=== PATIENT | male | born 1940 | race Caucasian/White ===

== ENCOUNTER → 2022-10-08 | Outpatient (CLI) | payer MEDICARE ==
[2022-10-08 12:32] LABS: INR 1.1 (<1.2); Partial Thromboplastin Time 27.7 sec (22.0-30.0); Prothrombin Time 11.3 sec (9.0-12.0)
[2022-10-08 19:30] LABS: HCT 38.3 % (39.6-50.0); HGB 12.5 g/dL (13.0-17.0); MCH 31.7 pg (27.0-32.0); MCHC 32.6 g/dL (32.0-37.0); MCV 97.2 fL (80.0-97.0); Mean Platelet Volume 10.1 fL (9.5-12.2); NRBC Per 100 WBC 0 /100 WBCS (0.0-0.0); Platelet Count 199 X 10*3/uL (140-440); RBC 3.94 X 10*6/uL (4.40-5.60); RDW 13.2 % (11.5-14.5)
[2022-10-08 21:04] LABS: Appearance,Urine Clear (Clear); Bilirubin,Urine Negative (Negative); Blood,Urine Negative (Negative); Color,Urine Yellow (Yellow); Ketones,Urine Negative (Negative); Nitrite,Urine Negative (Negative); Specific Gravity,Urine 1.009 (1.001-1.030); Urobilinogen,Urine 0.2 (0.2,1.0)
[2022-10-09 01:58] LABS: African American GFR (CKD) 27.3 (60.0-200.0); Albumin 4.1 g/dL (3.8-4.9); Albumin/Globulin Ratio 1.41 (1.60-3.17); Anion Gap 12.9 mmol/L (10.00-18.00); BUN/Creat Ratio 26.68 Ratio (12.00-20.00); Blood Urea Nitrogen 66.7 mg/dL (9.0-27.0); Calcium 9.5 mg/dL (8.7-10.3); Carbon Dioxide 25.1 mmol/L (20.0-27.5); Globulin 2.9 g/dL (1.6-3.3); Non-African American GFR(CKD) 23.5 (60.0-200.0); Potassium 4.7 mmol/L (3.5-5.5); Total Bilirubin 1.1 mg/dL (0.30-1.20)
== END | disposition home or self-care (01) ==
LOC: LABPAT 11:18
PROVIDERS: ATTEND Orthopaedic Surgery
DX: Z01.818 Encounter for other preprocedural examination (principal); M17.12 Unilateral primary osteoarthritis, left knee; I45.2 Bifascicular block; I49.3 Ventricular premature depolarization; R94.31 Abnormal electrocardiogram [ECG] [EKG]
CPT/HCPCS: 80053; 81003; 85027; 85610; 85730; 87070; 93005

== ENCOUNTER 2022-11-02 07:16 | Inpatient (IN) | payer MEDICARE ==
[~2022-11-02 07:16] MED LIST: ACETAMINOPHEN TAB 500 MG TAB PO PRN; GABAPENTIN 300 MG CAP PO PRN; MELOXICAM 7.5 MG TAB PO PRN; TRANEXAMIC ACID IN NACL,ISO-OS 1,000 MG in SALINE 1 100ML.BAG IVPB PRN
[2022-11-02] MEDS ORDERED: ONDANSETRON 4 MG/2 ML VIAL IVP ONE (07:34)
[2022-11-02] MEDS ORDERED: LIDOCAINE 1% (10MG/ML) FOR IV START INTRADERMA PRN (07:34)
[2022-11-02] MEDS ORDERED: DEXAMETHASONE SOD PHOSPHATE 4 MG/ML 1 ML VIAL IVP ONE (08:15)
[2022-11-02] MEDS: LACTATED RINGERS 1,000 ML IV SCH (08:15)
[2022-11-02 08:21] LABS: Glucose,Whole Blood 104 mg/dL (70-110)
[2022-11-02] MEDS ORDERED: MIDAZOLAM 2 MG/2 ML VIAL IVP ONE (08:21)
[2022-11-02] MEDS ORDERED: fentaNYL (PF) 50 MCG/1 ML VIAL IVP ONE (08:21)
[2022-11-02] MEDS ORDERED: bisacodyL 10 MG SUPP RECTAL PRN (08:47)
[2022-11-02] MEDS ORDERED: NA PHOS,M-B/NA PHOS,DI-BA 133 ML ENEMA RECTAL PRN (08:47)
[2022-11-02] MEDS ORDERED: HYDROmorphone 0.5 MG/0.5 ML SYRINGE IVP PRN ×2 (08:47)
[2022-11-02] MEDS ORDERED: MAGNESIUM HYDROXIDE 2,400 MG/10 ML CUP PO PRN (08:47)
[2022-11-02] MEDS ORDERED: NALOXONE 0.4 MG/ML 1 ML VIAL IV PRN (08:47)
[2022-11-02] MEDS ORDERED: PROPOFOL 10 MG/ML 20 ML VIAL IV ONE (09:01)
[2022-11-02] MEDS ORDERED: SUCCINYLCHOLINE CHLORIDE 200 MG/10 ML VIAL IV ONE (09:01)
[2022-11-02] MEDS ORDERED: TRANEXAMIC ACID IN NACL,ISO-OS 1,000 MG/100 ML BAG ONE (09:01)
[2022-11-02] MEDS ORDERED: fentaNYL (PF) 50 MCG/ML 2 ML AMP ONE (09:01)
[2022-11-02] MEDS ORDERED: MIDAZOLAM 2 MG/2 ML VIAL ONE (09:01)
[2022-11-02] MEDS ORDERED: SODIUM CHLORIDE 0.9% (PF) 10 ML VIAL ONE (09:01)
[2022-11-02] MEDS ORDERED: LIDOCAINE 2% INJ 20 MG/ML (2 ML VIAL) ONE (09:01)
[2022-11-02] MEDS ORDERED: ROPIVACAINE 5 MG/ML 30 ML VIAL ONE (09:01)
[2022-11-02] MEDS ORDERED: ceFAZolin 1,000 MG in SODIUM CHLORIDE 0.9% 1,000 ML IRRIGATION ONE (09:04)
--- NOTE | 2022-11-02 09:31 | P.ANPRN ---
Procedure Note - Anesthesia - Nerve Block Performed Left Adductor Canal Infusion Time Out Performed: Yes (0821) Date of Procedure: 11/02/22 Procedure Start Time: Procedure Stop Time: Location of Patient: PreOp Indication: Acute Post-Operative Pain, Requested by Surgeon Specifically requested for management of pain by DrDerek: Gabriel Rees Sedation Type: Sedate with meaningful contact maintained Preparation: Sterile Prep, Sterile Dressing Position: Supine Catheter Depth at Skin (cm): 6 Catheter: Indwelling Needle Types: Pajunk Needle Gauge: 18 Ultrasound used to visualize needle placement: Yes Ultrasound used to observe medication spread: Yes Injectate: 0.5% Ropivacaine (see comment for volume) (15cc +5cc nacl pf) Blood Aspirated: No Pain Paresthesia on Injection Noted: No Resistance on Injection: Normal Image Stored and Saved: Yes Events: Uneventful and Well Tolerated
--- NOTE | 2022-11-02 09:32 | P.ANPRN ---
Procedure Note - Anesthesia - Nerve Block Performed Left iPack Single Time Out Performed: Yes (0821) Date of Procedure: 11/02/22 Procedure Start Time: Procedure Stop Time: Location of Patient: PreOp Indication: Acute Post-Operative Pain, Requested by Surgeon Specifically requested for management of pain by DrDerek: Gabriel Rees Sedation Type: Sedate with meaningful contact maintained Preparation: Sterile Prep Position: Supine Catheter: None Needle Types: Pajunk Needle Gauge: 21 Ultrasound used to visualize needle placement: Yes Ultrasound used to observe medication spread: Yes Injectate: 0.5% Ropivacaine (see comment for volume) (15cc +5cc nacl pf) Blood Aspirated: No Pain Paresthesia on Injection Noted: No Resistance on Injection: Normal Image Stored and Saved: Yes Events: Uneventful and Well Tolerated
--- NOTE | 2022-11-02 10:08 | P.OP ---
Date of Procedure: 11/02/22 Preoperative Diagnosis: Severe osteoarthritis left knee Postoperative Diagnosis: Severe osteoarthritis left knee Procedure(s) Performed: Left total knee arthroplasty Implants: Dueñas [employer] Nephew Journey II CR Oxinium cruciate retaining femoral component size 6, left Dueñas [employer] Nephew Journey nonporous tibial baseplate size 5, left Dueñas [employer] Nephew Journey II, XLPE Deep Dished articular insert, size 15 mm, Size 5-6, left Duñeas [employer] Nephew Journey Romina II resurfacing patellar component, oval, 35 mm All components were cemented using Palacos R bone cement The articulation is Oxinium on polyethylene Anesthesia: BRIAN Surgeon: Gabriel Rees Dining Services Manager #1: Maty Abarca Estimated Blood Loss (ml): 30 Pathology: none sent Condition: stable Disposition: PACU Indications for Procedure: The patient's knee is end-stage, and conservative management has failed. The operation of knee replacement has been discussed at length in the office, as well as potential risks and complications. These are inclusive of, but not limited to: Infection, bleeding, scarring, discomfort, stiffness, blood vessel and nerve damage, need for further surgery, failure to relieve symptoms, persistence, recurrence, or worsening of problems, loosening, dislocation, wear, blood clot, pulmonary embolism, , gait dysfunction, stiffness, and other risks as discussed in the office. Patient elects to proceed and the consent form has been signed. Operative Findings: The operative findings are consistent with severe osteoarthritis of the left knee Description of Procedure: The patient was seen in the preoperative area, the consent was reviewed and the operative site was marked with a skin marker. The patient verified the procedure and the operative site. An adductor canal pain catheter and an iPACK block were placed by anesthesia in the preoperative area. The patient was then brought to the operating room and positioned on the operating room table in the supine position. Preoperative antibiotics and a gram of tranexamic acid were given intravenously. A general anesthetic was administered by the anesthesia department. Care was taken to make sure that all pressure points were adequately padded. A tourniquet was placed on the upper thigh and the lower extremity was prepped with ChloraPrep and draped in usual sterile fashion. A universal time-out was then performed which confirmed the patient's name, surgical site, ALLERGIES, and consent. The lower extremity was then exsanguinated and tourniquet was inflated to 250 mmHg. A standard anterior midline approach to the knee was performed. The skin and subcutaneous tissue were sharply dissected down to the patellar tendon. A medial parapatellar arthrotomy was then performed. The knee was then extended, the patellar was everted, and the knee was flexed. The infra-patellar fat pad was removed in order to enhance exposure. The anterior horns of both menisci were excised, and a release was performed to the posterior medial aspect of the knee. On gross visual inspection, there was complete loss of articular cartilage in the medial and patellofemoral joint spaces. There was also significant cartilage damage in the lateral compartment. There were multiple periarticular osteophytes globally about the knee which were then removed with a Ronguer. The femoral canal was then opened with the 9.5 mm intramedullary drill. The 8 mm intramedullary ashley was then inserted into the femoral canal with the distal femoral cutting guide set for 5 of valgus. The distal femoral cutting block was then pinned in place. The intramedullary ashley was then removed, and the distal femur was then cut. The cutting block was then removed and the cut was checked for symmetry. The resected bone was then measured to confirm the appropriate distal femoral resection. Next, the sizing guide was then placed and set for 3 external rotation based off of the epicondylar axis and Marietta's line. Pins were then placed and the drill holes, and the femur was sized with the sizing stylus. The pins were then removed, and the sizing guide was then removed. The spikes of the appropriate size femoral block was then placed into the predrilled holes, and malleted into place. Two 45 mm pins were then placed into the fixation holes on the cutting block. An brook wing was then used to ensure there would be no notching with the anterior cut. The anterior condyles were cut without notching. The anterior chord cut was then performed, followed by the posterior cut, posterior chamfer cut, and the anterior chamfer cut. The collateral ligaments were protected during the entire process. The cutting block was then removed. Any remaining bone and osteophytes were removed from the femur with a Ronguer. Attention was then directed to the tibia. The remaining ACL was removed with a Ronguer, and the tibia was then gently subluxed forward with a large bent knee retractor. Any remaining menisci were excised. The posterior lateral corner was cauterized in order to coagulate the lateral geniculate artery. The extra medullary tibial cutting guide was then placed, set for the appropriate rotation, slope, and depth of resection. The proximal tibia cutting guide was then pinned in place. Proximal tibia was then cut and sized. A curved osteotome was then used to remove any posterior osteophytes from the distal femur. The femoral trial was placed. A narrow saw blade was then used to remove the anterior intracondylar femoral bone. The CR notch trial was then placed. The tibial trial was placed with the appropriate-sized insert. The knee was able to fully extend and flex to 130 and was stable throughout all range of motion. The knee was then extended and the patella was everted. Patella was then measured, and then using an osteotomy guide, the patella was cut at the appropriate level. The patellar component was sized. The patellar drill guide was placed and the patella was drilled. The patella trial was then placed. The knee was then taken through range of motion with the patella trial and the patella tracked normally using the no thumbs technique. The patella trial was then removed. The knee was then flexed and lug holes were drilled through the femoral trial and the femoral trial was then removed. The tibial was then re- exposed, and the tibial broach guide was then pinned in place after it was set for the appropriate rotation to allow for the most coverage without overhang. The tibia was then reamed and broached. The femoral canal was plugged with autologous bone. The cut surfaces of bone were then irrigated with pulsatile lavage. The knee was also irrigated with Irrisept solution. The components were then opened, the cement was mixed. Cement was placed on the backside of the femoral, tibial, and patellar components. Cement was then applied to the tibial surface and pressurized into the surface using finger pressurization technique. The tibial component was then applied and excess cement was removed after it was impacted securely noted to be flush with the cut surface. In similar fashion, the cement was applied to the cut femoral surface, pressuri zed and using finger pressurization the component was impacted in place. Excess cement was removed. The polyethylene spacer was then implanted and locked into position. Patellar component was then applied in a similar technique and the patellar clamp was used to hold patella in place while the cement hardened. The knee was held in full extension while the cement hardened. Once the cement had fully hardened, the knee was reinspected. Any other cement extrusion was removed the final range of motion testing showed range of motion from 0-130 with excellent stability, both medial and laterally and appropriate alignment of the leg. Patella tracked normally. After the cemented hardened, the tourniquet was released and hemostasis was obtained. A second gram of transexamic acid was given intravenously. The knee was again irrigated. The knee was again taken through range of motion and found to be stable throughout all range of motion of 0-130, and the patella tracked normally. The fascia was then closed with 0 Vicryl followed by #2 strata fix suture. The subcutaneous tissue was closed with 3-0 Vicryl and 3-0 strata fix. Exofin glue was used for the skin and placed with the knee in flexion. After the glue had dried, and Optafoam silver impregnated dressing was applied. A lightly compressive dressing was applied using web roll and Jose wrap. Patient was then transferred to the stretcher and taken to recovery room in stable condition. Sponge and needle counts were correct. The purchasing assistant ROSS Rivera was required due the complexity surgery and the need for a skilled surgical orderly. She assisted in positioning, draping, retraction, and closure of the wound.
[2022-11-02] MEDS: HYDROmorphone 0.5 MG/0.5 ML SYRINGE IVP PRN ×4 (10:49→19:48)
--- NOTE | 2022-11-02 11:06 | XR ---
EXAMINATION TYPE: XR knee limited LT DATE OF EXAM: 11/02/2022 COMPARISON: NONE HISTORY: 82-year-old male evaluation for postoperative abnormality and alignment TECHNIQUE: 2 views FINDINGS: Images show placement of left total knee arthroplasty. Both distal femoral and proximal tib ial components of the prosthesis are well seated without periprosthetic fracture. Alignment grossly a natomic. Anterior soft tissue swelling with soft tissue air as well as intra-articular air related to recent operation. Small surgical clips are present along the medial aspect of the upper leg. IMPRESSION: Uncomplicated postoperative appearance left total knee arthroplasty.
[2022-11-02] MEDS: ONDANSETRON 4 MG/2 ML VIAL IVP PRN ×2 (13:14→19:47)
[2022-11-02] MEDS ORDERED: droPERidol 5 MG/2 ML VIAL IVP ONE (14:26)
[2022-11-02 14:34] LABS: Glucose,Whole Blood 203 mg/dL (70-110)
[2022-11-02 15:05] LABS: Glucose,Whole Blood 209 mg/dL (70-110)
[2022-11-02] MEDS ORDERED: DEXTROSE 50% SYRINGE 50 ML IVP PRN ×2 (15:21)
[2022-11-02 16:45] LABS: Glucose,Whole Blood 203 mg/dL (70-110)
--- NOTE | 2022-11-02 16:55 | P.CONS ---
History of Present Illness - Reason for Consult Consult date: 11/02/22 - History of Present Illness 82-year-old male with PMH of CHF, moderate to severe mitral regurg status post mitral clipping, CAD post CABG, history of TAVR, paroxysmal atrial fibrillation, ischemic cardiomyopathy status post pacemaker/defibrillator, diabetes mellitus on insulin presents to [facility] for elective surgery. He underwent left total knee arthroplasty with Dr. Rees. [facility] has been consulted for medical management of this patient. Patient currently reports 10/10 pain in his left knee. He has not urinated since his surgery. No bowel movement, not passing gas. Complains of some nausea and vomiting. Pertinent positives and negatives as discussed in HPI, a complete review of systems was performed and all other systems are negative. General: non toxic, no distress, appears at stated age Derm: warm, dry, midsternal surgical scar, scar from pacemaker and defibrillator Head: atraumatic, normocephalic, symmetric Eyes: EOMI, no lid lag, anicteric sclera Mouth: no lip lesion, mucus membranes moist Cardiovascular: S1S2 reg, no murmur Lungs: CTA bilateral, no rhonchi, no rales , no accessory muscle use Ext: no gross muscle atrophy, no edema, no contractures Neuro: no focal neuro deficits Psych: Alert, oriented, appropriate affect Assessment and Plan CHF, unknown EF CAD post CABG History of TAVR Paroxysmal atrial fibrillation Diabetes mellitus on insulin Based on my assessment of this patient, this patient meets a moderate complexity level of care. Patient has a chronic diagnosis of CHF, moderate to severe mitral regurg status post mitral clipping, CAD post CABG, history of TAVR, paroxysmal atrial fibrillation, ischemic cardiomyopathy, diabetes mellitus on insulin. CHF unknown EF: Careful monitoring of fluid status. Restart metoprolol 100 mg by mouth at bedtime. Restart Entresto 49-51 mg by mouth twice a day. Restart torsemide 20 mg by mouth daily. Restart Imdur 30 mg by mouth daily. CAD post CABG: Patient is on Alirocumab for dyslipidemia. Metoprolol as above. Restart Eliquis 5 mg by mouth twice daily. Paroxysmal atrial fibrillation: Metoprolol and Eliquis as above. Diabetes mellitus: Low-dose insulin sliding scale. Accu-Cheks before meals at bedtime. Hypoglycemic precautions. Restart long-acting insulin if blood glucose permits starting tomorrow. I have reviewed the following network security consultant notes: I have reviewed the results of the following tests: POC glucose 104-209. I have ordered the following tests: CBC and BMP ordered for tomorrow morning. I have discussed the care of this patient with the following independent historian: I have independently interpreted the following test below: I have discussed the management of this patient with the following physician: This patient has a moderate risk of morbidity due to the following reasons: Management of his chronic diagnosis of CHF, moderate to severe mitral regurg status post mitral clipping, CAD post CABG, history of TAVR, paroxysmal atrial fibrillation, ischemic cardiomyopathy, diabetes mellitus on insulin. Past Medical History Past Medical History: Atrial Fibrillation, Coronary Artery Disease (CAD), Chest Pain / Angina, CVA/TIA, Diabetes Mellitus, Hyperlipidemia, Hypertension, Myocardial Infarction (OR), Osteoarthritis (OA), Renal Disease Additional Past Medical History / Comment(s): pt states during hospital stay he was told he'd had a OR in the past, left shoulder and knee arthritis. states Stage 4 kidney disease. Last Myocardial Infarction Date:: unk History of Any Multi-Drug Resistant Organisms: None Reported Past Surgical History: Coronary Bypass/CABG, Heart Catheterization With Stent, Pacemaker, Tonsillectomy Past Anesthesia/Blood Transfusion Reactions: No Reported Reaction Date of Last Stent Placement:: 3-4 yrs ago Type of Cardiac Device: AICD Device Placement Date:: uzair hinojosa, Smoking Status: Former smoker - Past Family History Father Family Medical History: No Reported History Additional Family Medical History / Comment(s): early Mother Family Medical History: No Reported History Medications and Allergies Home Medications Medication Instructions Recorded Confirmed Type Acetaminophen [Tylenol Extra 1 tab PO DIRECTED PRN 10/28/22 10/28/22 History Strength] Alirocumab [Praluent Pen] 75 mg SQ Q14D 10/28/22 10/28/22 History Apixaban [Eliquis] 5 mg PO BID 10/28/22 10/28/22 History Cetirizine HCl [Zyrtec] 10 mg PO DAILY 10/28/22 10/28/22 History Cholecalciferol [Vitamin D3 (25 25 mcg PO DAILY 10/28/22 10/28/22 History Mcg = 1000 Iu)] Insulin Glargine,Hum.rec.anlog 30 unit SQ HS 10/28/22 10/28/22 History [Lantus Solostar Pen] Isosorbide Mononitrate ER [Imdur] 30 mg PO DAILY 10/28/22 10/28/22 History Liraglutide [Victoza 2-Elroy] 1.2 mg SQ DAILY 10/28/22 10/28/22 History Metoprolol Succinate [Toprol XL] 100 mg PO HS 10/28/22 10/28/22 History Sacubitril/Valsartan [Entresto 49 1 each PO BID 10/28/22 10/28/22 History mg-51 mg Tablet] Torsemide [Demadex] 20 mg PO DAILY 10/28/22 10/28/22 History Unk Fish Oil 1 tab PO DAILY 10/28/22 10/28/22 History Unk Magnesium 1 tab PO DAILY 10/28/22 10/28/22 History Unk Nitro Tab 1 tab PO DIRECTED PRN 10/28/22 10/28/22 History HYDROcodone/APAP 7.5-325MG [[place] 1 - 2 tab PO Q6H PRN #32 tab 11/02/22 Rx 7.5-325] Sennosides [Senokot] 2 tab PO DAILY PRN #60 tablet 11/02/22 Rx Allergies Allergy/AdvReac Type Severity Reaction Status Date / Time lisinopril Allergy Unknown Verified 11/02/22 08:13 ticagrelor [From Brilinta] Allergy Dyspnea Verified 11/02/22 08:13 Physical Exam Vitals: Vital Signs Temp Pulse Pulse Resp BP Pulse Ox 11/02/22 14:30 69 12 155/70 95 11/02/22 13:45 69 12 133/63 96 11/02/22 13:15 69 12 154/69 95 11/02/22 12:45 69 12 153/70 96 11/02/22 12:15 69 18 137/64 95 11/02/22 11:45 69 18 119/60 91 L 11/02/22 11:30 69 16 117/58 92 L 11/02/22 11:18 69 16 124/58 91 L 11/02/22 11:03 69 16 129/65 97 11/02/22 10:48 69 16 134/60 99 11/02/22 10:33 97.4 F L 70 16 155/70 99 11/02/22 08:43 67 16 153/61 96 11/02/22 08:10 97.2 F L 52 L 16 140/61 97 Intake and Output 11/02/22 11/02/22 11/02/22 06:59 14:59 22:59 Intake Total 1701 Output Total 30 Balance 1671 Intake: IV 1701 Output: Estimated Blood Loss 30 Results Labs: Abnormal Lab Results - Last 24 Hours (Table) 11/02/22 11/02/22 Range/Units 14:33 15:02 POC Glucose (mg/dL) 203 H 209 H (70-110) mg/dL
[2022-11-02] MEDS: INSULIN ASPART (NovoLOG) 100 UNIT/ML VIAL SQ SCH ×2 (17:24→21:38)
[2022-11-02] MEDS: HYDROcodone/APAP 7.5-325MG 1 EACH TAB PO PRN (17:24)
[2022-11-02] MEDS: SODIUM CHLORIDE 0.9% 1,000 ML IV SCH (17:25)
[2022-11-02] MEDS: METOPROLOL SUCCINATE (ER) 100 MG TAB.ER.24H PO SCH (19:49)
[2022-11-02] MEDS: SENNOSIDES-DOCUSATE SODIUM 1 EACH TAB PO SCH (19:50)
[2022-11-02] MEDS: SACUBITRIL/VALSARTAN 49 MG-51 MG TABLET PO SCH (19:50)
[2022-11-02 20:37] LABS: Glucose,Whole Blood 194 mg/dL (70-110)
[2022-11-03] MEDS: SODIUM CHLORIDE 0.9% 1,000 ML IV SCH ×2 (00:32→12:51)
[2022-11-03] MEDS: HYDROcodone/APAP 7.5-325MG 1 EACH TAB PO PRN ×4 (00:38→22:55)
[2022-11-03 05:12] LABS: African American GFR (CKD) 27 (>60 ml/min/1.73 sqM); Anion Gap 10 mmol/L; Blood Urea Nitrogen 69 mg/dL (9-20); Carbon Dioxide 23 mmol/L (22-30); Chloride 107 mmol/L (98-107); Glucose 139 mg/dL (74-99); Non-African American GFR(CKD) 23 (>60 ml/min/1.73 sqM); Potassium 5.7 mmol/L (3.5-5.1); Sodium 140 mmol/L (137-145)
[2022-11-03 05:49] LABS: Glucose,Whole Blood 110 mg/dL (70-110)
[2022-11-03] MEDS: INSULIN ASPART (NovoLOG) 100 UNIT/ML VIAL SQ SCH ×4 (05:59→21:37)
[2022-11-03] MEDS: LACTATED RINGERS 1,000 ML IV SCH (06:30)
[2022-11-03] MEDS: LORATADINE 10 MG TAB PO SCH (07:45)
[2022-11-03] MEDS: APIXABAN 5 MG TAB PO SCH ×2 (07:45→20:30)
[2022-11-03] MEDS: TORSEMIDE 20 MG TAB PO SCH (07:45)
--- NOTE | 2022-11-03 07:48 | P.PN ---
Progress Note - Text Progress Note Date: 11/03/22 (4179) Anesthesiology Postop day 1 status post total knee arthroplasty with adductor canal catheter. Patient doing well. VAS 0 out of 10. Gross strength intact in lower extremity. Afebrile. Denies alterations in sensorium. Catheter site intact. Heart regular rate Lungs nonlabored Abdomen nondistended Assessment: Postop day 1 status post total knee arthroplasty with adductor canal catheter Plan: 1.All questions answered. Maintain catheter 2 more days with patient removal at home. Instructions to be given at discharge. 2.This note was dictated using [id number] software. Please be advised there is a potential for misspellings or errors in sales attendant.
[2022-11-03] MEDS: SACUBITRIL/VALSARTAN 49 MG-51 MG TABLET PO SCH ×2 (07:51→20:31)
[2022-11-03] MEDS: ISOSORBIDE MONONITRATE ER 30 MG TAB.ER.24H PO SCH (07:55)
--- NOTE | 2022-11-03 08:51 | P.DS ---
Providers Expected date of discharge: 11/03/22 Attending physician: Gabriel Rees Consults: 11/02/22 08:47 Consult Physician Routine Consulting Provider: Erwin Lee Consult Reason/Comments: medical management Do you want consulting provider notified?: Yes Primary care physician: Gabriel Mendez - Discharge Diagnosis(es) (1) Osteoarthritis of left knee Current Visit: Yes Status: Acute (2) Status post total left knee replacement Current Visit: Yes Status: Acute Hospital Course: This is a 82-year-old male with known history of degenerative arthritis of the left knee. The patient presented for evaluation as an outpatient. After discussion and consideration patient elects to proceed with total knee arthroplasty. The patient is seen preoperatively by Dr. Rees and medically cleared for surgery by their primary care physician. Patient is admitted to [facility] on 11/02/2022 for total knee arthroplasty. The procedure is performed without complication or sequelae. The patient is doing well postoperatively. Labs and vital signs are stable on day of discharge. On day of discharge patient's knee incision is healing well. There is minimal erythema. There is no drainage noted at this time. There is minimal soft tiss ue swelling to the knee. Patient has full foot and ankle motion without difficulty or pain. Calf is soft and nontender to palpation. Neurovascular status to the left lower extremity is intact. Patient is discharged home in good condition. Please see med rec for accurate list of home medications. Plan - Discharge Summary Discharge Rx Participant: No New Discharge Prescriptions: New Sennosides [Senokot] 2 tab PO DAILY PRN #60 tablet PRN Reason: Constipation HYDROcodone/APAP 7.5-325MG [[place] 7.5-325] 1 - 2 tab PO Q6H PRN #32 tab PRN Reason: Pain No Action Alirocumab [Praluent Pen] 75 mg SQ Q14D Sacubitril/Valsartan [Entresto 49 mg-51 mg Tablet] 1 each PO BID Isosorbide Mononitrate ER [Imdur] 30 mg PO DAILY Insulin Glargine,Hum.rec.anlog [Lantus Solostar Pen] 30 unit SQ HS Apixaban [Eliquis] 5 mg PO BID Cetirizine HCl [Zyrtec] 10 mg PO DAILY Unk Nitro Tab 1 tab PO DIRECTED PRN PRN Reason: Chest Pain Unk Fish Oil 1 tab PO DAILY Liraglutide [Victoza 2-Elroy] 1.2 mg SQ DAILY Torsemide [Demadex] 20 mg PO DAILY Metoprolol Succinate [Toprol XL] 100 mg PO HS Cholecalciferol [Vitamin D3 (25 Mcg = 1000 Iu)] 25 mcg PO DAILY Acetaminophen [Tylenol Extra Strength] 1 tab PO DIRECTED PRN PRN Reason: Pain Unk Magnesium 1 tab PO DAILY Discharge Medication List Acetaminophen [Tylenol Extra Strength] 1 tab PO DIRECTED PRN 10/28/22 [History] Alirocumab [Praluent Pen] 75 mg SQ Q14D 10/28/22 [History] Apixaban [Eliquis] 5 mg PO BID 10/28/22 [History] Cetirizine HCl [Zyrtec] 10 mg PO DAILY 10/28/22 [History] Cholecalciferol [Vitamin D3 (25 Mcg = 1000 Iu)] 25 mcg PO DAILY 10/28/22 [History] Insulin Glargine,Hum.rec.anlog [Lantus Solostar Pen] 30 unit SQ HS 10/28/22 [History] Isosorbide Mononitrate ER [Imdur] 30 mg PO DAILY 10/28/22 [History] Liraglutide [Victoza 2-Elroy] 1.2 mg SQ DAILY 10/28/22 [History] Metoprolol Succinate [Toprol XL] 100 mg PO HS 10/28/22 [History] Sacubitril/Valsartan [Entresto 49 mg-51 mg Tablet] 1 each PO BID 10/28/22 [History] Torsemide [Demadex] 20 mg PO DAILY 10/28/22 [History] Unk Fish Oil 1 tab PO DAILY 10/28/22 [History] Unk Magnesium 1 tab PO DAILY 10/28/22 [History] Unk Nitro Tab 1 tab PO DIRECTED PRN 10/28/22 [History] HYDROcodone/APAP 7.5-325MG [[place] 7.5-325] 1 - 2 tab PO Q6H PRN #32 tab 11/02/22 [Rx] Sennosides [Senokot] 2 tab PO DAILY PRN #60 tablet 11/02/22 [Rx] Follow up Appointment(s)/Referral(s): Gabriel Rees DO [Doctor of Osteopathic Medicine] - 2 Weeks Activity/Diet/Wound Care/Special Instructions: Weightbearing as tolerated with a walker. CPM 5-6h daily as tolerated. Leave dressing intact. Dressing may be removed by home care nurse or by patient in 7 days. Then change dressing twice daily until follow up. May shower with initial dressing intact and after removal. If dressing become saturated, please remove. Recommend use of compression stockings daily until follow up to help prevent swelling and blood clots. May remove at night before sleeping. Please resume Eliquis. Please follow up with [facility] and call with any questions or concerns, . Discharge Disposition: HOME WITH HOME HEALTH SERVICES
[2022-11-03 08:56] LABS: Basophils # (A) 0.01 X 10*3/uL (0.00-0.10); Basophils % (A) 0.1 %; Eosinophils # (A) 0 X 10*3/uL (0.04-0.35); Eosinophils % (A) 0 %; HCT 39.1 % (39.6-50.0); HGB 12.6 g/dL (13.0-17.0); Immature Grans, Automated 0.5 %; Lymphocytes % (A) 4.8 %; MCH 32.1 pg (27.0-32.0); MCHC 32.2 g/dL (32.0-37.0); MCV 99.5 fL (80.0-97.0); Mean Platelet Volume 10.4 fL (9.5-12.2); Monocytes # (A) 0.88 X 10*3/uL (0.20-1.00); Monocytes % (A) 7.1 %; NRBC Per 100 WBC 0 /100 WBCS (0.0-0.0); Neutrophils % (A) 87.5 %; Platelet Count 136 X 10*3/uL (140-440); RBC 3.93 X 10*6/uL (4.40-5.60); WBC 12.45 X 10*3/uL (4.50-10.00)
[2022-11-03 11:03] LABS: Glucose,Whole Blood 175 mg/dL (70-110)
[2022-11-03 11:50] VITALS: BMI 31.9
[2022-11-03] MEDS ORDERED: traMADol 50 MG TAB PO PRN (12:05)
--- NOTE | 2022-11-03 12:09 | P.PN ---
Subjective Progress Note Date: 11/03/22 82-year-old male with PMH of CHF, moderate to severe mitral regurg status post mitral clipping, CAD post CABG, history of TAVR, paroxysmal atrial fibrillation, ischemic cardiomyopathy status post pacemaker/defibrillator, diabetes mellitus on insulin presents to [facility] for elective surgery. He underwent left total knee arthroplasty with Dr. Rees. [facility] has been consulted for medical management of this patient. 11/02 Patient currently reports 10/10 pain in his left knee. He has not urinated since his surgery. No bowel movement, not passing gas. Complains of some nausea and vomiting. 11/03 Patient continues to report left knee pain but working with PT. PT feels he would benefit from one more day of therapy. Urinating freely. Passing gas. General: non toxic, no distress, appears at stated age Derm: warm, dry, midsternal surgical scar, scar from pacemaker and defibrillator Head: atraumatic, normocephalic, symmetric Eyes: EOMI, no lid lag, anicteric sclera Mouth: no lip lesion, mucus membranes moist Cardiovascular: S1S2 reg, no murmur Lungs: CTA bilateral, no rhonchi, no rales , no accessory muscle use Ext: no gross muscle atrophy, no edema, no contractures Neuro: no focal neuro deficits Psych: Alert, oriented, appropriate affect Assessment and Plan Leukocytosis Hyperkalemia CHF, unknown EF CAD post CABG History of TAVR Paroxysmal atrial fibrillation Diabetes mellitus on insulin Chronic kidney disease Based on my assessment of this patient, this patient meets a moderate complexity level of care. Patient has a chronic diagnosis of CHF, moderate to severe mitral regurg status post mitral clipping, CAD post CABG, history of TAVR, paroxysmal atrial fibrillation, ischemic cardiomyopathy, diabetes mellitus on insulin. CHF unknown EF: Careful monitoring of fluid status. Restart metoprolol 100 mg by mouth at bedtime. Restart Entresto 49-51 mg by mouth twice a day. Restart torsemide 20 mg by mouth daily. Restart Imdur 30 mg by mouth daily. CAD post CABG: Patient is on Alirocumab for dyslipidemia. Metoprolol as above. Restart Eliquis 5 mg by mouth twice daily. Paroxysmal atrial fibrillation: Metoprolol and Eliquis as above. Diabetes mellitus: Low-dose insulin sliding scale. Accu-Cheks before meals at bedtime. Hypoglycemic precautions. Restart long-acting insulin if blood glucose permits starting tomorrow. Potassium of 5.7 likely related to CKD. Plans to repeat potassium level at 12PM. Leukocytosis likely reactive with no signs of active infection. I have reviewed the following technical marketing consultant notes: I have reviewed the results of the following tests: CBC shows WBC count 12.45, Hg 12.6, MCV 99.5, Plt 136. BMP shows K 5.7, BUN 69, Cr 2.53. POC glucose 110-209 over the past 24H. I have ordered the following tests: K ordered for 12PM. Repeat BMP tomorrow morning. I have discussed the care of this patient with the following independent historian: I have independently interpreted the following test below: I have discussed the management of this patient with the following physician: This patient has a moderate risk of morbidity due to the following reasons: Management of his chronic diagnosis of CHF, moderate to severe mitral regurg status post mitral clipping, CAD post CABG, history of TAVR, paroxysmal atrial fibrillation, ischemic cardiomyopathy, diabetes mellitus on insulin. Objective - Vital Signs Vital signs: Vital Signs Temp 97.5 F L 11/03/22 07:52 Pulse 70 11/03/22 07:52 Resp 18 11/03/22 10:10 BP 93/55 11/03/22 07:52 Pulse Ox 97 11/03/22 07:52 FiO2 Intake & Output 11/02/22 11/03/22 11/03/22 18:59 06:59 18:59 Intake Total 1701 800 Output Total 30 Balance 1671 800 Weight 95.254 kg 95.254 kg Intake: IV 1701 Intake, IV Titration 800 Amount Sodium Chloride 0.9% 1, 700 000 ml @ 70 mls/hr IV . [id number] ELIZABETH Rx#:[id number] ceFAZolin 2 gm In Sodium 100 Chloride 0.9% 50 ml @ 100 mls/hr IVPB Q8H ELIZABETH Rx#: [id number] Output: Estimated Blood Loss 30 Other: Voiding Method Toilet Toilet - Labs CBC & Chem 7: 11/03/22 04:35 11/03/22 04:35 Labs: Abnormal Lab Results - Last 24 Hours (Table) 11/02/22 11/02/22 11/02/22 Range/Units 14:33 15:02 16:44 WBC (4.50-10.00) X 10*3/uL RBC (4.40-5.60) X 10*6/uL Hgb (13.0-17.0) g/dL Hct (39.6-50.0) % MCV (80.0-97.0) fL MCH (27.0-32.0) pg Plt Count (140-440) X 10*3/uL Immature Gran # (0.00-0.04) X 10*3/uL Neutrophils # (1.80-7.70) X 10*3/uL Lymphocytes # (0.90-5.00) X 10*3/uL Eosinophils # (0.04-0.35) X 10*3/uL Potassium (3.5-5.1) mmol/L BUN (9-20) mg/dL Creatinine (0.66-1.25) mg/dL Glucose (74-99) mg/dL POC Glucose (mg/dL) 203 H 209 H 203 H (70-110) mg/dL 11/02/22 11/03/22 11/03/22 Range/Units 20:34 04:35 04:35 WBC 12.45 H (4.50-10.00) X 10*3/uL RBC 3.93 L (4.40-5.60) X 10*6/uL Hgb 12.6 L (13.0-17.0) g/dL Hct 39.1 L (39.6-50.0) % MCV 99.5 H (80.0-97.0) fL MCH 32.1 H (27.0-32.0) pg Plt Count 136 L (140-440) X 10*3/uL Immature Gran # 0.06 H (0.00-0.04) X 10*3/uL Neutrophils # 10.90 H (1.80-7.70) X 10*3/uL Lymphocytes # 0.60 L (0.90-5.00) X 10*3/uL Eosinophils # 0 L (0.04-0.35) X 10*3/uL Potassium 5.7 H (3.5-5.1) mmol/L BUN 69 H (9-20) mg/dL Creatinine 2.53 H (0.66-1.25) mg/dL Glucose 139 H (74-99) mg/dL POC Glucose (mg/dL) 194 H (70-110) mg/dL 11/03/22 Range/Units 11:00 WBC (4.50-10.00) X 10*3/uL RBC (4.40-5.60) X 10*6/uL Hgb (13.0-17.0) g/dL Hct (39.6-50.0) % MCV (80.0-97.0) fL MCH (27.0-32.0) pg Plt Count (140-440) X 10*3/uL Immature Gran # (0.00-0.04) X 10*3/uL Neutrophils # (1.80-7.70) X 10*3/uL Lymphocytes # (0.90-5.00) X 10*3/uL Eosinophils # (0.04-0.35) X 10*3/uL Potassium (3.5-5.1) mmol/L BUN (9-20) mg/dL Creatinine (0.66-1.25) mg/dL Glucose (74-99) mg/dL POC Glucose (mg/dL) 175 H (70-110) mg/dL
[2022-11-03] MEDS: traMADol 50 MG TAB PO PRN ×2 (12:50→18:55)
[2022-11-03 16:45] LABS: Glucose,Whole Blood 157 mg/dL (70-110)
[2022-11-03] MEDS: SENNOSIDES-DOCUSATE SODIUM 1 EACH TAB PO SCH (20:30)
[2022-11-03] MEDS: HYDROmorphone 0.5 MG/0.5 ML SYRINGE IVP PRN (20:31)
[2022-11-03] MEDS: METOPROLOL SUCCINATE (ER) 100 MG TAB.ER.24H PO SCH (20:31)
[2022-11-03 21:25] LABS: Glucose,Whole Blood 154 mg/dL (70-110)
[2022-11-04] MEDS: SODIUM CHLORIDE 0.9% 1,000 ML IV SCH ×2 (00:55→22:54)
[2022-11-04] MEDS: LACTATED RINGERS 1,000 ML IV SCH (00:55)
[2022-11-04] MEDS: traMADol 50 MG TAB PO PRN ×3 (01:41→22:53)
[2022-11-04] MEDS: HYDROcodone/APAP 7.5-325MG 1 EACH TAB PO PRN ×2 (05:43→10:41)
[2022-11-04 06:11] LABS: Glucose,Whole Blood 124 mg/dL (70-110)
[2022-11-04] MEDS: INSULIN ASPART (NovoLOG) 100 UNIT/ML VIAL SQ SCH ×4 (06:26→22:53)
--- NOTE | 2022-11-04 07:51 | P.DS ---
Providers Date of admission: 11/03/22 13:38 Expected date of discharge: 11/04/22 Attending physician: Gabriel Rees Consults: 11/02/22 08:47 Consult Physician Routine Consulting Provider: Erwin Lee Consult Reason/Comments: medical management Do you want consulting provider notified?: Yes Primary care physician: Gabriel Mendez - Discharge Diagnosis(es) (1) Osteoarthritis of left knee Current Visit: Yes Status: Acute (2) Status post total left knee replacement Current Visit: Yes Status: Acute Hospital Course: This is an 82-year-old male who was last seen with complaint of continued left knee pain. The patient has a known history of degenerative arthritis of the left knee and presents to discuss surgical options. After discussion and consideration the patient elects to proceed with total left knee arthroplasty. The patient is seen preoperatively by his primary care physician and cleared for surgery. The patient is admitted to [facility] for total left knee arthroplasty. The procedures performed without complication or sequelae. He is doing well postoperatively. Vital signs are stable at discharge. Labs are stable at discharge. the patient is ambulating well with walker with minimal assistance. The patient is discharged to home on postop day #2 pending medical clearance. Please see orders and refer to the med rec for accurate list of medications. Patient Condition at Discharge: Good Plan - Discharge Summary Discharge Rx Participant: Yes New Discharge Prescriptions: New Sennosides [Senokot] 2 tab PO DAILY PRN #60 tablet PRN Reason: Constipation traMADol HCl [Ultram] 1 - 2 tab PO Q6H PRN #32 tab PRN Reason: Pain No Action Alirocumab [Praluent Pen] 75 mg SQ Q14D Sacubitril/Valsartan [Entresto 49 mg-51 mg Tablet] 1 each PO BID Isosorbide Mononitrate ER [Imdur] 30 mg PO DAILY Insulin Glargine,Hum.rec.anlog [Lantus Solostar Pen] 30 unit SQ HS Apixaban [Eliquis] 5 mg PO BID Cetirizine HCl [Zyrtec] 10 mg PO DAILY Unk Nitro Tab 1 tab PO DIRECTED PRN PRN Reason: Chest Pain Unk Fish Oil 1 tab PO DAILY Liraglutide [Victoza 2-Elroy] 1.2 mg SQ DAILY Torsemide [Demadex] 20 mg PO DAILY Metoprolol Succinate [Toprol XL] 100 mg PO HS Cholecalciferol [Vitamin D3 (25 Mcg = 1000 Iu)] 25 mcg PO DAILY Acetaminophen [Tylenol Extra Strength] 1 tab PO DIRECTED PRN PRN Reason: Pain Unk Magnesium 1 tab PO DAILY Discharge Medication List Acetaminophen [Tylenol Extra Strength] 1 tab PO DIRECTED PRN 10/28/22 [History] Alirocumab [Praluent Pen] 75 mg SQ Q14D 10/28/22 [History] Apixaban [Eliquis] 5 mg PO BID 10/28/22 [History] Cetirizine HCl [Zyrtec] 10 mg PO DAILY 10/28/22 [History] Cholecalciferol [Vitamin D3 (25 Mcg = 1000 Iu)] 25 mcg PO DAILY 10/28/22 [History] Insulin Glargine,Hum.rec.anlog [Lantus Solostar Pen] 30 unit SQ HS 10/28/22 [History] Isosorbide Mononitrate ER [Imdur] 30 mg PO DAILY 10/28/22 [History] Liraglutide [Victoza 2-Elroy] 1.2 mg SQ DAILY 10/28/22 [History] Metoprolol Succinate [Toprol XL] 100 mg PO HS 10/28/22 [History] Sacubitril/Valsartan [Entresto 49 mg-51 mg Tablet] 1 each PO BID 10/28/22 [History] Torsemide [Demadex] 20 mg PO DAILY 10/28/22 [History] Unk Fish Oil 1 tab PO DAILY 10/28/22 [History] Unk Magnesium 1 tab PO DAILY 10/28/22 [History] Unk Nitro Tab 1 tab PO DIRECTED PRN 10/28/22 [History] Sennosides [Senokot] 2 tab PO DAILY PRN #60 tablet 11/02/22 [Rx] traMADol HCl [Ultram] 1 - 2 tab PO Q6H PRN #32 tab 11/03/22 [Rx] Follow up Appointment(s)/Referral(s): [facility] [NON-STAFF] - As Needed (*Please call [facility] once home to arrange delivery of the Continuous Passive Motion (CPM) machine.) [facility], [NON-STAFF] - 1-2 Days ([facility] will call you to schedule your in home physical therapy visits. ) Gabriel Rees DO [Doctor of Osteopathic Medicine] - 11/13/22 10:45 am Gabriel Mendez DO [Primary Care Provider] - 11/10/22 9:00 am Activity/Diet/Wound Care/Special Instructions: Weightbearing as tolerated with a walker. CPM 5-6h daily as tolerated. Leave dressing intact. Dressing may be removed by home care nurse or by patient in 7 days. Then change dressing twice daily until follow up. May shower with initial dressing intact and after removal. If dressing become saturated, please remove. Recommend use of compression stockings daily until follow up to help prevent swelling and blood clots. May remove at night before sleeping. Please resume Eliquis. Please follow up with [facility] and call with any questions or concerns, .
[2022-11-04] MEDS: SACUBITRIL/VALSARTAN 49 MG-51 MG TABLET PO SCH ×2 (08:28→21:46)
[2022-11-04] MEDS: TORSEMIDE 20 MG TAB PO SCH (08:29)
[2022-11-04] MEDS: APIXABAN 5 MG TAB PO SCH ×2 (08:29→22:54)
[2022-11-04] MEDS: ISOSORBIDE MONONITRATE ER 30 MG TAB.ER.24H PO SCH (08:29)
[2022-11-04] MEDS: LORATADINE 10 MG TAB PO SCH (08:29)
[2022-11-04 11:44] LABS: Glucose,Whole Blood 144 mg/dL (70-110)
[2022-11-04 16:54] LABS: Glucose,Whole Blood 124 mg/dL (70-110)
--- NOTE | 2022-11-04 17:10 | P.PN ---
Subjective Progress Note Date: 11/04/22 82-year-old male with PMH of CHF, moderate to severe mitral regurg status post mitral clipping, CAD post CABG, history of TAVR, paroxysmal atrial fibrillation, ischemic cardiomyopathy status post pacemaker/defibrillator, diabetes mellitus on insulin presents to [facility] for elective surgery. He underwent left total knee arthroplasty with Dr. Rees. [facility] has been consulted for medical management of this patient. 11/02 Patient currently reports 10/10 pain in his left knee. He has not urinated since his surgery. No bowel movement, not passing gas. Complains of some nausea and vomiting. 11/03 Patient continues to report left knee pain but working with PT. PT feels he would benefit from one more day of therapy. Urinating freely. Passing gas. 11/04 Patient reports well controlled pain. Would like to avoid narcotics if at all possible. Evaluated by PT and OT, plans for SNF, pending insurance authorization. at bedside. General: non toxic, no distress, appears at stated age Derm: warm, dry, midsternal surgical scar, scar from pacemaker and defibrillator Head: atraumatic, normocephalic, symmetric Eyes: EOMI, no lid lag, anicteric sclera Cardiovascular: good distal perfusion in all 4 extremities Lungs: no accessory muscle use Ext: no gross muscle atrophy, no edema, no contractures Neuro: no focal neuro deficits Psych: Alert, oriented, appropriate affect Assessment and Plan Leukocytosis CHF, unknown EF CAD post CABG History of TAVR Paroxysmal atrial fibrillation Diabetes mellitus on insulin Chronic kidney disease Resolved: HyperK Based on my assessment of this patient, this patient meets a moderate complexity level of care. Patient has a chronic diagnosis of CHF, moderate to severe mitral regurg status post mitral clipping, CAD post CABG, history of TAVR, paroxysmal atrial fibrillation, ischemic cardiomyopathy, diabetes mellitus on insulin. CHF unknown EF: Careful monitoring of fluid status. Restart metoprolol 100 mg by mouth at bedtime. Restart Entresto 49-51 mg by mouth twice a day. Restart torsemide 20 mg by mouth daily. Restart Imdur 30 mg by mouth daily. Hold antihypertensive medication as patient appears to be on the hypotensive side. CAD post CABG: Patient is on Alirocumab for dyslipidemia. Metoprolol as above. Restart Eliquis 5 mg by mouth twice daily. Paroxysmal atrial fibrillation: Metoprolol and Eliquis as above. Diabetes mellitus: Low-dose insulin sliding scale. Accu-Cheks before meals at bedtime. Hypoglycemic precautions. Restart long-acting insulin if blood glucose permits starting tomorrow. Leukocytosis likely reactive with no signs of active infection. I have reviewed the following customer relations consultant notes: I have reviewed the results of the following tests: POC glucose 124-157 over the past 24H. I have ordered the following tests: Repeat CBC and BMP tomorrow morning. I have discussed the care of this patient with the following independent historian: I have independently interpreted the following test below: I have discussed the management of this patient with the following physician: This patient has a moderate risk of morbidity due to the following reasons: Management of his chronic diagnosis of CHF, moderate to severe mitral regurg status post mitral clipping, CAD post CABG, history of TAVR, paroxysmal atrial fibrillation, ischemic cardiomyopathy, diabetes mellitus on insulin. Objective - Vital Signs Vital signs: Vital Signs Temp 97.3 F L 11/04/22 13:57 Pulse 68 11/04/22 13:57 Resp 16 11/04/22 07:02 BP 95/50 11/04/22 13:57 Pulse Ox 93 L 11/04/22 13:57 FiO2 Intake & Output 11/03/22 11/04/22 11/04/22 18:59 06:59 18:59 Intake Total 500 Output Total 500 300 Balance 0 -300 Weight 95.254 kg Intake: Oral 500 Output: Urine 500 300 Other: Voiding Method Toilet Toilet Urinal Urinal - Labs CBC & Chem 7: 11/03/22 04:35 11/03/22 11:59 Labs: Abnormal Lab Results - Last 24 Hours (Table) 11/03/22 11/04/22 11/04/22 Range/Units 21:23 06:10 11:43 POC Glucose (mg/dL) 154 H 124 H 144 H (70-110) mg/dL 11/04/22 Range/Units 16:51 POC Glucose (mg/dL) 124 H (70-110) mg/dL
[2022-11-04 21:18] LABS: Glucose,Whole Blood 158 mg/dL (70-110)
[2022-11-04] MEDS: SENNOSIDES-DOCUSATE SODIUM 1 EACH TAB PO SCH (22:54)
[2022-11-04] MEDS: METOPROLOL SUCCINATE (ER) 100 MG TAB.ER.24H PO SCH (22:54)
[2022-11-05] MEDS: traMADol 50 MG TAB PO PRN (06:26)
[2022-11-05 06:29] LABS: Glucose,Whole Blood 152 mg/dL (70-110)
[2022-11-05] MEDS: INSULIN ASPART (NovoLOG) 100 UNIT/ML VIAL SQ SCH ×4 (06:39→20:44)
[2022-11-05] MEDS: LACTATED RINGERS 1,000 ML IV SCH ×2 (07:18→15:12)
[2022-11-05] MEDS: SODIUM CHLORIDE 0.9% 1,000 ML IV SCH ×2 (07:47→23:05)
[2022-11-05] MEDS: SACUBITRIL/VALSARTAN 49 MG-51 MG TABLET PO SCH (07:47)
[2022-11-05] MEDS: TORSEMIDE 20 MG TAB PO SCH (07:54)
[2022-11-05] MEDS: LORATADINE 10 MG TAB PO SCH ×2 (07:54→07:58)
[2022-11-05] MEDS: APIXABAN 5 MG TAB PO SCH (07:54)
[2022-11-05] MEDS: ISOSORBIDE MONONITRATE ER 30 MG TAB.ER.24H PO SCH (07:54)
[2022-11-05] MEDS: HYDROcodone/APAP 7.5-325MG 1 EACH TAB PO PRN (08:06)
[2022-11-05 08:29] LABS: Basophils % (A) 0 %; Eosinophils # (A) 0.1 k/uL (0-0.7); Eosinophils % (A) 1 %; HCT 37.7 % (39.0-53.0); HGB 12.2 gm/dL (13.0-17.5); Lymphocytes # (A) 0.7 k/uL (1.0-4.8); Lymphocytes % (A) 9 %; MCHC 32.4 g/dL (31.0-37.0); MCV 98.9 fL (80.0-100.0); Mean Platelet Volume 8.1; Monocytes # (A) 0.6 k/uL (0-1.0); Monocytes % (A) 7 %; Neutrophils # (A) 6.3 k/uL (1.3-7.7); Neutrophils % (A) 81 %; Platelet Count 144 k/uL (150-450); RBC 3.81 m/uL (4.30-5.90); RDW 12.6 % (11.5-15.5); WBC 7.7 k/uL (3.8-10.6)
--- NOTE | 2022-11-05 08:40 | P.DS ---
Providers Date of admission: 11/03/22 13:38 Expected date of discharge: 11/05/22 Attending physician: Gabriel Rees Consults: 11/02/22 08:47 Consult Physician Routine Consulting Provider: Erwin Lee Consult Reason/Comments: medical management Do you want consulting provider notified?: Yes Primary care physician: Gabriel Mendez - Discharge Diagnosis(es) (1) Osteoarthritis of left knee Current Visit: Yes Status: Acute (2) Status post total left knee replacement Current Visit: Yes Status: Acute Hospital Course: his is an 82-year-old male who was last seen with complaint of continued left knee pain. The patient has a known history of degenerative arthritis of the left knee and presents to discuss surgical options. After discussion and consideration the patient elects to proceed with total left knee arthroplasty. The patient is seen preoperatively by his primary care physician and cleared for surgery. The patient is admitted to [facility] for total left knee arthroplasty. The procedures performed without complication or sequelae. He is doing well postoperatively. Vital signs are stable at discharge. Labs are stable at discharge. the patient is ambulating well with walker with minimal assistance. The patient is discharged to inpatient rehab on postop day #3 pending medical clearance. Please see orders and refer to the med rec for accurate list of medications. Patient Condition at Discharge: Good Plan - Discharge Summary Discharge Rx Participant: Yes New Discharge Prescriptions: New Sennosides-Docusate Sodium [Senokot-S] 1 tab PO BID #60 tablet traMADol HCl [Ultram] 50 - 100 mg PO Q6HR PRN #28 tab PRN Reason: Pain Continue Alirocumab [Praluent Pen] 75 mg SQ Q14D Sacubitril/Valsartan [Entresto 49 mg-51 mg Tablet] 1 each PO BID Isosorbide Mononitrate ER [Imdur] 30 mg PO DAILY Insulin Glargine,Hum.rec.anlog [Lantus Solostar Pen] 30 unit SQ HS Apixaban [Eliquis] 5 mg PO BID Cetirizine HCl [Zyrtec] 10 mg PO DAILY Unk Nitro Tab 1 tab PO DIRECTED PRN PRN Reason: Chest Pain Unk Fish Oil 1 tab PO DAILY Liraglutide [Victoza 2-Elroy] 1.2 mg SQ DAILY Torsemide [Demadex] 20 mg PO DAILY Metoprolol Succinate [Toprol XL] 100 mg PO HS Cholecalciferol [Vitamin D3 (25 Mcg = 1000 Iu)] 25 mcg PO DAILY Acetaminophen [Tylenol Extra Strength] 1 tab PO DIRECTED PRN PRN Reason: Pain Unk Magnesium 1 tab PO DAILY Discharge Medication List Acetaminophen [Tylenol Extra Strength] 1 tab PO DIRECTED PRN 10/28/22 [History] Alirocumab [Praluent Pen] 75 mg SQ Q14D 10/28/22 [History] Apixaban [Eliquis] 5 mg PO BID 10/28/22 [History] Cetirizine HCl [Zyrtec] 10 mg PO DAILY 10/28/22 [History] Cholecalciferol [Vitamin D3 (25 Mcg = 1000 Iu)] 25 mcg PO DAILY 10/28/22 [History] Insulin Glargine,Hum.rec.anlog [Lantus Solostar Pen] 30 unit SQ HS 10/28/22 [History] Isosorbide Mononitrate ER [Imdur] 30 mg PO DAILY 10/28/22 [History] Liraglutide [Victoza 2-Elroy] 1.2 mg SQ DAILY 10/28/22 [History] Metoprolol Succinate [Toprol XL] 100 mg PO HS 10/28/22 [History] Sacubitril/Valsartan [Entresto 49 mg-51 mg Tablet] 1 each PO BID 10/28/22 [History] Torsemide [Demadex] 20 mg PO DAILY 10/28/22 [History] Unk Fish Oil 1 tab PO DAILY 10/28/22 [History] Unk Magnesium 1 tab PO DAILY 10/28/22 [History] Unk Nitro Tab 1 tab PO DIRECTED PRN 10/28/22 [History] Sennosides-Docusate Sodium [Senokot-S] 1 tab PO BID #60 tablet 11/05/22 [Rx] traMADol HCl [Ultram] 50 - 100 mg PO Q6HR PRN #28 tab 11/05/22 [Rx] Follow up Appointment(s)/Referral(s): [facility],Equipment [NON-STAFF] - As Needed (*Please call [facility] once home to arrange delivery of the Continuous Passive Motion (CPM) machine.) [facility], [NON-STAFF] - 1-2 Days ([facility] will call you to schedule your in home physical therapy visits. ) Gabriel Rees DO [Doctor of Osteopathic Medicine] - 11/13/22 10:45 am Gabriel Mendez DO [Primary Care Provider] - 11/10/22 9:00 am Activity/Diet/Wound Care/Special Instructions: Weightbearing as tolerated with a walker. CPM 5-6h daily as tolerated. Leave dressing intact. Dressing may be removed by home care nurse or by patient in 7 days. Then change dressing twice daily until follow up. May shower with initial dressing intact and after removal. If dressing become saturated, please remove. Recommend use of compression stockings daily until follow up to help prevent swelling and blood clots. May remove at night before sleeping. Please resume Eliquis. Please follow up with [facility] and call with any questions or concerns, .
[2022-11-05 09:43] LABS: African American GFR (CKD) 22 (>60 ml/min/1.73 sqM); Anion Gap 12 mmol/L; Blood Urea Nitrogen 84 mg/dL (9-20); Calcium 8.8 mg/dL (8.4-10.2); Carbon Dioxide 19 mmol/L (22-30); Chloride 102 mmol/L (98-107); Glucose 139 mg/dL (74-99); Non-African American GFR(CKD) 19 (>60 ml/min/1.73 sqM); Potassium 5.6 mmol/L (3.5-5.1); Sodium 133 mmol/L (137-145)
--- NOTE | 2022-11-05 11:49 | P.PN ---
Subjective Progress Note Date: 11/05/22 82-year-old male with PMH of CHF, moderate to severe mitral regurg status post mitral clipping, CAD post CABG, history of TAVR, paroxysmal atrial fibrillation, ischemic cardiomyopathy status post pacemaker/defibrillator, diabetes mellitus on insulin presents to [facility] for elective surgery. He underwent left total knee arthroplasty with Dr. Rees. [facility] has been consulted for medical management of this patient. 11/02 Patient currently reports 10/10 pain in his left knee. He has not urinated since his surgery. No bowel movement, not passing gas. Complains of some nausea and vomiting. 11/03 Patient continues to report left knee pain but working with PT. PT feels he would benefit from one more day of therapy. Urinating freely. Passing gas. 11/04 Patient reports well controlled pain. Would like to avoid narcotics if at all possible. Evaluated by PT and OT, plans for SNF, pending insurance authorization. at bedside. 11/05 Patient seen and examined. Apparently, patient was confused overnight and reports hallucinations. She attributes his altered mentation to the pain medications he received. His confusion has resolved throughout the day and during the encounter. He reports uncontrolled pain today. He has been urinating freely. CBC shows Hg of 12.2 and Plt of 144. BMP shows Na 133, K 5.6, bicab of 19, BUN 84, Cr 2.97. General: non toxic, no distress, appears at stated age Derm: warm, dry, midsternal surgical scar, scar from pacemaker and defibrillator Head: atraumatic, normocephalic, symmetric Eyes: EOMI, no lid lag, anicteric sclera Cardiovascular: Normal S1 S2. Lungs: Clear to auscultation bilaterally. no accessory muscle use Ext: no gross muscle atrophy, no edema, no contractures Neuro: no focal neuro deficits Psych: Alert, oriented, appropriate affect Assessment and Plan Acute kidney injury on chronic kidney disease Hyperkalemia Metabolic acidosis CHF, unknown EF CAD post CABG History of TAVR Paroxysmal atrial fibrillation Diabetes mellitus on insulin Resolved: Leukocytosis Based on my assessment of this patient, this patient meets a moderate complexity level of care. Patient has a chronic diagnosis of CHF, moderate to severe mitral regurg status post mitral clipping, CAD post CABG, history of TAVR, paroxysmal atrial fi brillation, ischemic cardiomyopathy, diabetes mellitus on insulin. CHF unknown EF: Careful monitoring of fluid status. Restart metoprolol 100 mg by mouth at bedtime. Restart Entresto 49-51 mg by mouth twice a day. Restart torsemide 20 mg by mouth daily. Restart Imdur 30 mg by mouth daily. CAD post CABG: Patient is on Alirocumab for dyslipidemia. Metoprolol as above. Restart Eliquis 5 mg by mouth twice daily. Paroxysmal atrial fibrillation: Metoprolol and Eliquis as above. Diabetes mellitus: Low-dose insulin sliding scale. Accu-Cheks before meals at bedtime. Hypoglycemic precautions. Restart long-acting insulin if blood glucose permits starting tomorrow. Patient with metabolic acidosis, hypoNa, hyperK likely related to MARY on CKD. Bladder scan after voiding shows 184cc. Likely related to dehydration. Hold discharge today and start LR at 75 cc/hr. Cautious hydration as patient with h/o CHF. Avoid nephrotoxins. Hold Entresto and Torsemide today. Repeat BMP tomorrow morning. I have reviewed the following sap pp consultant notes: I have reviewed the results of the following tests: CBC shows Hg of 12.2 and Plt of 144. BMP shows Na 133, K 5.6, bicab of 19, BUN 84, Cr 2.97. I have ordered the following tests: BMP tomorrow morning. I have discussed the care of this patient with the following independent historian: Case discussed with the and RN at bedside. His confusion has resolved. I have independently interpreted the following test below: I have discussed the management of this patient with the following physician: This patient has a moderate risk of morbidity due to the following reasons: Management of his chronic diagnosis of CHF, moderate to severe mitral regurg status post mitral clipping, CAD post CABG, history of TAVR, paroxysmal atrial fibrillation, ischemic cardiomyopathy, diabetes mellitus on insulin. Discharge today held due to worsening renal function. Likely prerenal. Non obstructive. Start IVF. Hold Torsemide and Entresto (received AM dose). Repeat BMP tomorrow. Possible DC tomorrow. Objective - Vital Signs Vital signs: Vital Signs Temp 97.7 F 11/05/22 07:00 Pulse 69 11/05/22 07:00 Resp 18 11/05/22 07:00 BP 113/74 11/05/22 07:00 Pulse Ox 96 11/05/22 07:00 FiO2 Intake & Output 05/24/23 05/25/23 05/25/23 18:59 06:59 18:59 Output Total 200 Balance -200 Output: Post Void Residual 200 Other: Voiding Method Urinal # Voids 4 4 - Labs CBC & Chem 7: 11/05/22 07:36 11/05/22 07:36 Labs: Abnormal Lab Results - Last 24 Hours (Table) 11/04/22 11/04/22 11/04/22 Range/Units 11:43 16:51 21:17 RBC (4.30-5.90) m/uL Hgb (13.0-17.5) gm/dL Hct (39.0-53.0) % Plt Count (150-450) k/uL Lymphocytes # (1.0-4.8) k/uL Sodium (137-145) mmol/L Potassium (3.5-5.1) mmol/L Carbon Dioxide (22-30) mmol/L BUN (9-20) mg/dL Creatinine (0.66-1.25) mg/dL Glucose (74-99) mg/dL POC Glucose (mg/dL) 144 H 124 H 158 H (70-110) mg/dL 11/05/22 11/05/22 11/05/22 Range/Units 06:28 07:36 07:36 RBC 3.81 L (4.30-5.90) m/uL Hgb 12.2 L (13.0-17.5) gm/dL Hct 37.7 L (39.0-53.0) % Plt Count 144 L (150-450) k/uL Lymphocytes # 0.7 L (1.0-4.8) k/uL Sodium 133 L (137-145) mmol/L Potassium 5.6 H (3.5-5.1) mmol/L Carbon Dioxide 19 L (22-30) mmol/L BUN 84 H (9-20) mg/dL Creatinine 2.97 H (0.66-1.25) mg/dL Glucose 139 H (74-99) mg/dL POC Glucose (mg/dL) 152 H (70-110) mg/dL
[2022-11-05 11:55] LABS: Glucose,Whole Blood 114 mg/dL (70-110)
[2022-11-05 16:45] LABS: Glucose,Whole Blood 147 mg/dL (70-110)
[2022-11-05 19:56] LABS: Glucose,Whole Blood 138 mg/dL (70-110)
[2022-11-05] MEDS: SENNOSIDES-DOCUSATE SODIUM 1 EACH TAB PO SCH (20:43)
[2022-11-05] MEDS: METOPROLOL SUCCINATE (ER) 100 MG TAB.ER.24H PO SCH (20:43)
[2022-11-05] MEDS: ACETAMINOPHEN TAB 500 MG TAB PO SCH ×2 (20:43→22:45)
[2022-11-05] MEDS: SIMETHICONE 80 MG CHEWABLE PO SCH ×2 (20:44→22:24)
[2022-11-05] MEDS ORDERED: APIXABAN 2.5 MG TABLET PO SCH (21:00)
[2022-11-06 03:13] VITALS: PULSE 70
[2022-11-06 03:42] LABS: Glucose,Whole Blood 173 mg/dL (70-110)
[2022-11-06] MEDS: LACTATED RINGERS 1,000 ML IV SCH (05:58)
[2022-11-06] MEDS: ACETAMINOPHEN TAB 500 MG TAB PO SCH (06:14)
[2022-11-06 06:16] LABS: Glucose,Whole Blood 170 mg/dL (70-110)
[2022-11-06] MEDS: INSULIN ASPART (NovoLOG) 100 UNIT/ML VIAL SQ SCH (06:22)
[2022-11-06 07:12] LABS: African American GFR (CKD) 21 (>60 ml/min/1.73 sqM); Anion Gap 13 mmol/L; Blood Urea Nitrogen 87 mg/dL (9-20); Calcium 8.7 mg/dL (8.4-10.2); Carbon Dioxide 20 mmol/L (22-30); Chloride 100 mmol/L (98-107); Glucose 142 mg/dL (74-99); Non-African American GFR(CKD) 18 (>60 ml/min/1.73 sqM); Potassium 5.4 mmol/L (3.5-5.1); Sodium 133 mmol/L (137-145)
[2022-11-06] MEDS ORDERED: EPINEPHrine 10 ML SYRINGE (0.1 MG/ML) ONE (07:19)
[2022-11-06] MEDS ORDERED: SODIUM BICARB 8.4% 50 ML SYR (1 MEQ/ML) ONE (07:19)
[2022-11-06 07:44] LABS: Glucose,Whole Blood 160 mg/dL (70-110)
[2022-11-06] MEDS ORDERED: MORPHINE SULFATE 4 MG/ML SYRINGE IM STA (07:58)
[2022-11-06] MEDS ORDERED: LORazepam 2 MG/ML INJ IM STA (07:59)
[2022-11-06] MEDS ORDERED: LORazepam 2 MG/ML INJ ONE (08:02)
[2022-11-06] MEDS ORDERED: LORazepam 2 MG/ML INJ IV STA (08:10)
[2022-11-06] MEDS ORDERED: MORPHINE SULFATE 4 MG/ML SYRINGE IVP STA (08:10)
[2022-11-06 08:22] VITALS: BP 122/73; RESP 19; TEMP 99
--- NOTE | 2022-11-06 14:01 | P.DS ---
Providers Date of admission: 11/06/22 07:28 Expected date of discharge: 11/06/22 Attending physician: Gabriel Rees Consults: 11/02/22 08:47 Consult Physician Routine Consulting Provider: Erwin Lee Consult Reason/Comments: medical management Do you want consulting provider notified?: Yes Primary care physician: Gabriel Mendez - Discharge Diagnosis(es) (1) Osteoarthritis of left knee Current Visit: Yes Status: Acute (2) Status post total left knee replacement Current Visit: Yes Status: Acute Hospital Course: This is a 82-year-old male with known history of degenerative arthritis of the left knee. The patient presented for evaluation as an outpatient. The patient was seen preoperatively by Dr. Rees and medically cleared for surgery by their primary care physician and cardiology and was determined to be high risk. After discussion and consideration patient elected to proceed with total knee arthroplasty. Patient was admitted to [facility] on 11/02/2022 for total knee arthroplasty. The procedure is performed without complication or sequelae. The patient was doing well and planning on discharge to an inpatient rehab facility. However, discharge was postponed per internal medicine to monitor renal function. The patient was found unresponsive on the morning of 11/06/2022 and subsequently . Patient Condition at Discharge: Good Plan - Discharge Summary Discharge Rx Participant: Yes New Discharge Prescriptions: New Sennosides-Docusate Sodium [Senokot-S] 1 tab PO BID #60 tablet traMADol HCl [Ultram] 50 - 100 mg PO Q6HR PRN #28 tab PRN Reason: Pain Continue Alirocumab [Praluent Pen] 75 mg SQ Q14D Sacubitril/Valsartan [Entresto 49 mg-51 mg Tablet] 1 each PO BID Isosorbide Mononitrate ER [Imdur] 30 mg PO DAILY Insulin Glargine,Hum.rec.anlog [Lantus Solostar Pen] 30 unit SQ HS Apixaban [Eliquis] 5 mg PO BID Cetirizine HCl [Zyrtec] 10 mg PO DAILY Unk Nitro Tab 1 tab PO DIRECTED PRN PRN Reason: Chest Pain Unk Fish Oil 1 tab PO DAILY Liraglutide [Victoza 2-Elroy] 1.2 mg SQ DAILY Torsemide [Demadex] 20 mg PO DAILY Metoprolol Succinate [Toprol XL] 100 mg PO HS Cholecalciferol [Vitamin D3 (25 Mcg = 1000 Iu)] 25 mcg PO DAILY Acetaminophen [Tylenol Extra Strength] 1 tab PO DIRECTED PRN PRN Reason: Pain Unk Magnesium 1 tab PO DAILY Discharge Medication List Acetaminophen [Tylenol Extra Strength] 1 tab PO DIRECTED PRN 10/28/22 [History] Alirocumab [Praluent Pen] 75 mg SQ Q14D 10/28/22 [History] Apixaban [Eliquis] 5 mg PO BID 10/28/22 [History] Cetirizine HCl [Zyrtec] 10 mg PO DAILY 10/28/22 [History] Cholecalciferol [Vitamin D3 (25 Mcg = 1000 Iu)] 25 mcg PO DAILY 10/28/22 [History] Insulin Glargine,Hum.rec.anlog [Lantus Solostar Pen] 30 unit SQ HS 10/28/22 [History] Isosorbide Mononitrate ER [Imdur] 30 mg PO DAILY 10/28/22 [History] Liraglutide [Victoza 2-Elroy] 1.2 mg SQ DAILY 10/28/22 [History] Metoprolol Succinate [Toprol XL] 100 mg PO HS 10/28/22 [History] Sacubitril/Valsartan [Entresto 49 mg-51 mg Tablet] 1 each PO BID 10/28/22 [History] Torsemide [Demadex] 20 mg PO DAILY 10/28/22 [History] Unk Fish Oil 1 tab PO DAILY 10/28/22 [History] Unk Magnesium 1 tab PO DAILY 10/28/22 [History] Unk Nitro Tab 1 tab PO DIRECTED PRN 10/28/22 [History] Sennosides-Docusate Sodium [Senokot-S] 1 tab PO BID #60 tablet 11/05/22 [Rx] traMADol HCl [Ultram] 50 - 100 mg PO Q6HR PRN #28 tab 11/05/22 [Rx] Follow up Appointment(s)/Referral(s): [facility],Equipment [NON-STAFF] - As Needed (*Please call [facility] once home to arrange delivery of the Continuous Passive Motion (CPM) machine.) [facility], [NON-STAFF] - 1-2 Days ([facility] will call you to schedule your in home physical therapy visits. ) Gabriel Rees DO [Doctor of Osteopathic Medicine] - 11/13/22 10:45 am Gabriel Mendez DO [Primary Care Provider] - 11/10/22 9:00 am Discharge Disposition: - Preliminary Cause of Preliminary Cause of : Cardiac arrest.
--- NOTE | 2022-11-06 15:28 | P.EN ---
Code called overhead at 0719. Reportedly, patient had vitals taken an hour earlier. Patient not on telemetry. Patient found to be pulseless at around 0719. CPR started. Did not have IV access, as patient pulled it out at night. Attempts were made to establish IV access by multiple nurses. Meanwhile patient remained on the monitor and CPR continued. Got a 22G IV access on right upper arm at 0728. Given epi x3. Patient also went into vfib at 0726 once and was shocked at 120J. Intubated at 07. Lost IV access again 0737. I made attempts to get femoral central line access, but not successful. Patient did have ROSC briefly at 0739, but again went into PEA at 0740. CPR restarted. I was able to get IO access in right leg at 0740. Epi x2 and bicarb x1 given. ROSC at 0743. BP was 143/113. PEA again at 0744. CPR restarted. Epi x2. ROSC at 0749, BP 109/79, HR 79. Started on levo at 0.2. Junctional rhythm. Pupils fixed and dilated. Spoke with in the family meeting room. Decision made to make him DNR, and comfort measures only, and extubate. Was given 4mg IV morphine and 2 mg IV ativan for discomfort. Patient at 08.
--- NOTE | 2022-11-18 15:36 | CDI ---
Documentation Clarification Form Date: 11/18/2022 From: Cesia Morrow Phone: [phone] Admit Date: 11/06/2022 07:28:00 AM Patient Name: Sonido Rodríguez Visit Number: [id number] Discharge Date: 11/06/2022 03:19:00 PM ATTENTION: The Clinical Documentation Specialists (CDI) and [facility] Coding Staff appreciate your assistance in clarifying documentation. Please respond to the clarification below the line at the bottom and electronically sign. The CDI & [facility] Coding staff will review the response and follow-up if needed. Please note: Queries are made part of the Legal Health Record. If you have any questions, please contact the author of this message via ITS. Dr. Erwin Lee Your patient has the documented symptom of confusion in IM PN on 11/05. Additional clarification regarding the etiology/cause of this symptom is requested. History/Risk Factors: 82yo admitted for elective TKA for L knee OA. Per the record, pt was found in PEA on 11/06, was made comfort care and . Clinical Indicators: Per IM PN on 11/06, Apparently, patient was confused overnight and reports hallucinations. She attributed his altered mentation to the pain medications he received. His confusion has resolved throughout the day and during the encounter. supervisor plastics 11/05 @ [id number] pt was confused, Ox1, aggressive, restless, suspicious, resistive to care and angry Treatment: [place] was d/cd and Tylenol was ordered Please clarify the etiology of the symptom of confusion. [ ] Toxic encephalopathy due to pain meds [ x] Delirium (specify cause) [ ] Other condition (please specify) [ ] Unable to determine MTDD
== END 2022-11-06 15:19 | disposition expired | DRG 982 ==
LOC: OR 07:16 → 4SSUR 10:33 → OR 11-03 13:38 → 4SSUR 11-03 13:38 → OBSVTOIN 11-06 07:28
PROVIDERS: ADMIT Orthopaedic Surgery; ATTEND Orthopaedic Surgery
PROC: 3E0T3BZ Introduction of Anesthetic Agent into Peripheral Nerves and Plexi, Percutaneous Approach (ICD-10-PCS; 2022-11-02)
PROC: 3E0T3BZ Introduction of Anesthetic Agent into Peripheral Nerves and Plexi, Percutaneous Approach (ICD-10-PCS; 2022-11-02)
PROC: 0SRD0J9 Replacement of Left Knee Joint with Synthetic Substitute, Cemented, Open Approach (ICD-10-PCS; principal; 2022-11-02 09:10)
PROC: 5A12012 Performance of Cardiac Output, Single, Manual (ICD-10-PCS; 2022-11-06)
PROC: 5A2204Z Restoration of Cardiac Rhythm, Single (ICD-10-PCS; 2022-11-06)
PROC: 3E043XZ Introduction of Vasopressor into Central Vein, Percutaneous Approach (ICD-10-PCS; 2022-11-06)
PROC: 0BH17EZ Insertion of Endotracheal Airway into Trachea, Via Natural or Artificial Opening (ICD-10-PCS; 2022-11-06)
DX: N17.9 Acute kidney failure, unspecified (principal); E87.1 Hypo-osmolality and hyponatremia; I13.0 Hypertensive heart and chronic kidney disease with heart failure and stage 1 through stage 4 chronic kidney disease, or unspecified chronic kidney disease; E87.20 Acidosis, unspecified; M17.12 Unilateral primary osteoarthritis, left knee; N18.4 Chronic kidney disease, stage 4 (severe); I46.9 Cardiac arrest, cause unspecified; I49.01 Ventricular fibrillation; E11.22 Type 2 diabetes mellitus with diabetic chronic kidney disease; I50.9 Heart failure, unspecified; I48.0 Paroxysmal atrial fibrillation; E86.0 Dehydration; D72.828 Other elevated white blood cell count; Z95.2 Presence of prosthetic heart valve; Z66 Do not resuscitate; Z51.5 Encounter for palliative care; Z53.8 Procedure and treatment not carried out for other reasons; I25.5 Ischemic cardiomyopathy; I25.10 Atherosclerotic heart disease of native coronary artery without angina pectoris; M19.012 Primary osteoarthritis, left shoulder; E78.5 Hyperlipidemia, unspecified; E87.5 Hyperkalemia; R41.0 Disorientation, unspecified; I25.2 Old myocardial infarction; Z79.4 Long term (current) use of insulin; Z87.891 Personal history of nicotine dependence; Z95.1 Presence of aortocoronary bypass graft; Z86.73 Personal history of transient ischemic attack (TIA), and cerebral infarction without residual deficits; Z95.5 Presence of coronary angioplasty implant and graft; Z95.810 Presence of automatic (implantable) cardiac defibrillator; Z79.899 Other long term (current) drug therapy; Z79.01 Long term (current) use of anticoagulants; Z79.85 Long-term (current) use of injectable non-insulin antidiabetic drugs; Z88.8 Allergy status to other drugs, medicaments and biological substances
CPT/HCPCS: 36410; 64448; 64999; 76937; 80048; 84132; 85025; 87635; 88300; 92950